=== PATIENT | male | born 1980 | race Caucasian/White ===

== ENCOUNTER 2018-04-08 09:55 | Emergency (ER) | payer MEDICAID ==
[~2018-04-08] VITALS: Ht 185.4 cm; Wt 88.5 kg
[2018-04-08 10:05] VITALS: BP_SYST 120
== END 2018-04-08 10:36 | disposition left against medical advice (07) ==
LOC: SED 09:55
DX: R07.81 Pleurodynia (principal); Z53.21 Procedure and treatment not carried out due to patient leaving prior to being seen by health care provider

== ENCOUNTER 2018-06-22 18:37 | Emergency (ER) | payer SELFPAY ==
[~2018-06-22] VITALS: Ht 185.4 cm; Wt 90.7 kg
[2018-06-22 18:44] VITALS: BP_SYST 159
[2018-06-22 21:34] VITALS: BP_SYST 141
== END 2018-06-22 21:34 | disposition home or self-care (01) ==
LOC: SED 18:37
DX: S52.92XA Unspecified fracture of left forearm, initial encounter for closed fracture (principal); S01.01XA Laceration without foreign body of scalp, initial encounter; F17.200 Nicotine dependence, unspecified, uncomplicated; R03.0 Elevated blood-pressure reading, without diagnosis of hypertension; Z91.19 Patient's noncompliance with other medical treatment and regimen; V49.40XA Driver injured in collision with unspecified motor vehicles in traffic accident, initial encounter; Y93.89 Activity, other specified; Y92.410 Unspecified street and highway as the place of occurrence of the external cause; Y99.8 Other external cause status
CPT/HCPCS: 99281

== ENCOUNTER 2019-01-14 16:46 | Emergency (ER) | payer MEDICAID ==
[~2019-01-14] VITALS: Ht 177.8 cm; Wt 81.6 kg
[2019-01-14 16:50] VITALS: BP_SYST 141
== END 2019-01-14 18:39 | disposition home or self-care (01) ==
LOC: SED 16:46
DX: S92.411A Displaced fracture of proximal phalanx of right great toe, initial encounter for closed fracture (principal); V89.2XXA Person injured in unspecified motor-vehicle accident, traffic, initial encounter; Y93.89 Activity, other specified; Y92.410 Unspecified street and highway as the place of occurrence of the external cause; Y99.8 Other external cause status
CPT/HCPCS: 99283